=== PATIENT | female | born 1965 | race Caucasian/White ===

== ENCOUNTER 2018-09-24 15:39 | Emergency (ER) | payer OTHER ==
[~2018-09-24] VITALS: Ht 160 cm; Wt 109.0 kg
[2018-09-24] MEDS ORDERED: AUGMENTIN500TAB PO (16:37)
[2018-09-24 16:48] VITALS: BP 148/83
== END 2018-09-24 16:53 | disposition home or self-care (01) | DRG 605 ==
LOC: ED 15:39
DX: S50.871A Other superficial bite of right forearm, initial encounter (principal); W55.01XA Bitten by cat, initial encounter; Y92.007 Garden or yard of unspecified non-institutional (private) residence as the place of occurrence of the external cause